=== PATIENT | male | born 1990 | race Hispanic/Latino ===

== ENCOUNTER 2016-10-05 16:16 | Emergency (ER) | payer SELFPAY ==
[2016-10-05 20:11] LABS: Basophils % (Auto) 0.5 % (0.0-1.8); Eosinophils % (Auto) 2.6 % (0.0-4.3); Hematocrit 41.3 % (35.5-45.6); Hemoglobin 13.9 gm/dl (11.8-15.2); Mean Corpuscular HGB Conc 34 % (32-34); Mean Corpuscular Hemoglobin 28 pg (28-32); Mean Corpuscular Volume 84 fl (84-94); Platelet Count 230 K/mm3 (140-440); Red Blood Count 4.93 M/mm3 (3.65-5.03); White Blood Count 9.1 K/mm3 (4.5-11.0)
[2016-10-05 20:18] LABS: Anion Gap 17 mmol/L; Blood Urea Nitrogen 6 mg/dL (9-20); Calcium 8.7 mg/dL (8.4-10.2); Carbon Dioxide 29 mmol/L (22-30); Chloride 95.1 mmol/L (98-107); Glucose 79 mg/dL (75-100); Potassium 3.9 mmol/L (3.6-5.0); Sodium 137 mmol/L (137-145)
[2016-10-05 21:25] LABS: Urine Drugs of Abuse Note Disclamer
[2016-10-05 21:42] LABS: Bilirubin,Urine NEG (Negative); Blood,Urine NEG (Negative); Ketones,Urine NEG (Negative); Leukocyte Esterase,Urine NEG (Negative); Mucus,Urine FEW /HPF; Nitrite,Urine NEG (Negative); Protein,Urine <15 mg/dL mg/dL (Negative); Urobilinogen,Urine < 2.0 mg/dL (<2.0); WBC,Urine < 1.0 /HPF (0.0-6.0)
--- NOTE | 2016-10-06 00:21 | Emergency Department Report ---
ED Psych HPI - General Chief Complaint: Psych Stated Complaint: MH/DETOX Time Seen by Provider: 10/06/16 00:03 Source: patient Mode of arrival: Ambulatory Limitations: No Limitations - History of Present Illness Initial Comments: 26-year-old male presents to the emergency department for mental health evaluation. Patient states he was to go to a facility for detox and rehabilitation. He states he has been using heroin. Patient denies suicidal or homicidal thoughts. He denies visual or auditory hallucinations. There are no other complaints. -: unknown Associated Psychiatric Symptoms: none History of same: Yes Quality: constant Improves With: none Worsens With: none Context: recent drug abuse Associated Symptoms: denies other symptoms Treatments Prior to Arrival: none - Related Data Home Medications Medication Instructions Recorded Confirmed Last Taken No Known Home Medications [No 10/06/16 10/06/16 Unknown Reported Home Medications] Allergies Allergy/AdvReac Type Severity Reaction Status Date / Time No Known Allergies Allergy Unverified 10/05/16 19:20 ED Review of Systems ROS: Stated complaint: MH/DETOX Other details as noted in HPI Comment: All other systems reviewed and negative Psychiatric: as per HPI (substance abuse) ED Past Medical Hx - Past Medical History Previous Medical History?: No - Surgical History Past Surgical History?: Yes Additional Surgical History: both shoulders rebuilt - Family History Family history: no significant - Social History Smoking Status: Current Every Day Smoker Substance Use Type: Heroin, Marijuana - Medications Home Medications: Home Medications Medication Instructions Recorded Confirmed Last Taken Type No Known Home Medications [No 10/06/16 10/06/16 Unknown History Reported Home Medications] ED Physical Exam - General Limitations: No Limitations General appearance: alert, in no apparent distress - Head Head exam: Present: atraumatic, normocephalic - Eye Eye exam: Present: normal appearance, PERRL, EOMI - ENT ENT exam: Present: normal exam, normal orophraynx, mucous membranes moist - Neck Neck exam: Present: normal inspection, full ROM. Absent: tenderness - Respiratory Respiratory exam: Present: normal lung sounds bilaterally. Absent: respiratory distress - Cardiovascular Cardiovascular Exam: Present: regular rate, normal rhythm, normal heart sounds - GI/Abdominal GI/Abdominal exam: Present: soft, normal bowel sounds. Absent: distended, tenderness - Extremities Exam Extremities exam: Present: normal inspection, full ROM. Absent: tenderness - Back Exam Back exam: Present: normal inspection, full ROM. Absent: tenderness - Neurological Exam Neurological exam: Present: alert, oriented X3. Absent: motor sensory deficit - Skin Skin exam: Present: warm, dry, intact ED Course Vital Signs 10/05/16 19:14 Temperature 98.4 F Pulse Rate 95 H Respiratory 18 Rate Blood Pressure 128/89 O2 Sat by Pulse 100 Oximetry ED Medical Decision Making - Lab Data Result diagrams: 10/05/16 19:40 10/05/16 19:40 - Medical Decision Making Lab results reviewed. Patient has been medically cleared. Patient is awaiting mental evaluation. - Differential Diagnosis substance abuse Critical care attestation.: If time is entered above; I have spent that time in minutes in the direct care of this critically ill patient, excluding procedure time. ED Disposition Clinical Impression: Substance abuse Disposition: [id number]/TX-65 PSY HOSP/PSY UNIT Is pt being admited?: No Condition: Stable Instructions: Polysubstance Abuse (ED) Referrals: PRIMARY CARE [Primary Care Provider] - 3-5 Days Time of Disposition: 02:19
--- NOTE | 2016-10-06 14:02 | Consultation ---
History of Present Illness - Reason for Consult Consult date: 10/06/16 Reason for consult: Mental Health Evaluation Requesting physician: AUSTIN RAMIRES - Chief Complaint Chief complaint: "I used heroin" - History of Present Psychiatric Illness 26-year-old male presents to the emergency department for mental health evaluation. Today patient is calm and cooperative during assessment. He stated that he is seeking help to detox from opioids (heroin). Patient stated that he last used heroin 24 hours ago. He stated being in a detox program with [facility] , but was dismissed for having contraband (benzos). He denies SI/HI's, AVH's, and depression. He denies excessive alcohol consumption (etoh). Medications and Allergies Allergies Allergy/AdvReac Type Severity Reaction Status Date / Time No Known Allergies Allergy Unverified 10/05/16 19:20 Home Medications Medication Instructions Recorded Confirmed Last Taken Type No Known Home Medications [No 10/06/16 10/06/16 Unknown History Reported Home Medications] Past psychiatric history - Past Medical History Past Medical History: No medical history Past Surgical History: No surgical history - past Psychiatric treatment and history psychiatric treatment history: [facility] for detox for heroin. Patient denies a fam psy/substance abuse hx. - Social History Social history: other (HS and College graduate, homeless) Mental Status Exam - Vital signs Last Vital Signs Temp 98.4 F 10/05/16 19:14 Pulse 85 10/06/16 07:21 Resp 16 10/06/16 07:21 BP 134/85 10/06/16 07:21 Pulse Ox 99 10/06/16 07:21 - Exam Narrative exam: ROS: (-) depression MSE: Appearance: calm, cooperative Behavior: good eye contact Speech: regular rate and tone Mood: "okay" Affect: labile Thought Process: linear Thought Content: denies SI/HI's and AVH's Motor Activity: ambulatory Cognition: A/Ox 3 Insight: fair Judgment: limited Results Result Diagrams: 10/05/16 19:40 10/05/16 19:40 Abnormal lab results 10/05/16 10/05/16 Range/Units 19:40 19:40 RDW 13.0 L (13.2-15.2) % Seg Neutrophils % 77.0 H (40.0-70.0) % Chloride 95.1 L (98-107) mmol/L BUN 6 L (9-20) mg/dL All other labs normal. Assessment and Plan Assessment and plan: Impression: Historical Dx: Opioids use. Substance Use DO (Cocaine/Amphetamines) . Today patient is calm and cooperative during assessment. He denies SI/HI's and AVH's. Patient positive for cocaine/amphetamines. No acute withdrawals noted. DDx: R/O Mood DO Recommendation/Plan: Patient given referrals for rehab services in his local area.
[2016-10-06 15:55] VITALS: BP 99/76
--- NOTE | 2016-10-06 18:27 | Event Note ---
Date: 10/06/16 Patient is seen and examined. He is alert and oriented 3. He walks with a steady gait. He is clinically sober. He is not homicidal or suicidal. Psychiatric recommendations are reviewed. The patient will be discharged at this time. Vital Signs 10/05/16 10/06/16 10/06/16 19:14 07:21 15:54 Temperature 98.4 F Pulse Rate 95 H 85 70 Respiratory 18 16 16 Rate Blood Pressure 128/89 Blood Pressure 134/85 99/76 [Left] O2 Sat by Pulse 100 99 95 Oximetry Labs 10/05/16 10/05/16 10/05/16 19:40 19:40 19:40 WBC 9.1 RBC 4.93 Hgb 13.9 Hct 41.3 MCV 84 MCH 28 MCHC 34 RDW 13.0 L Plt Count 230 Lymph % (Auto) 14.0 [place] % (Auto) 5.9 Eos % (Auto) 2.6 Baso % (Auto) 0.5 Lymph # 1.3 [place] # 0.5 Eos # 0.2 Baso # 0.0 Seg Neutrophils % 77.0 H Seg Neutrophils # 7.0 Sodium 137 Potassium 3.9 Chloride 95.1 L Carbon Dioxide 29 Anion Gap 17 BUN 6 L Creatinine 0.8 Estimated GFR > 60 BUN/Creatinine Ratio 7.50 Glucose 79 Calcium 8.7 Urine Color Urine Turbidity Urine pH Ur Specific [place] Urine Protein Urine Glucose (UA) Urine Ketones Urine Blood Urine Nitrite Urine Bilirubin Urine Urobilinogen Ur Leukocyte Esterase Urine WBC (Auto) Urine RBC (Auto) Urine Mucus Urine Opiates Screen Urine Methadone Screen Ur Barbiturates Screen Ur Phencyclidine Scrn Ur Amphetamines Screen U Benzodiazepines Scrn Urine Cocaine Screen U Marijuana (THC) Screen Drugs of Abuse Note Plasma/Serum Alcohol < 0.01 10/05/16 10/05/16 21:00 21:00 WBC RBC Hgb Hct MCV MCH MCHC RDW Plt Count Lymph % (Auto) [place] % (Auto) Eos % (Auto) Baso % (Auto) Lymph # [place] # Eos # Baso # Seg Neutrophils % Seg Neutrophils # Sodium Potassium Chloride Carbon Dioxide Anion Gap BUN Creatinine Estimated GFR BUN/Creatinine Ratio Glucose Calcium Urine Color Yellow Urine Turbidity Clear Urine pH 6.0 Ur Specific [place] 1.006 Urine Protein <15 mg/dl Urine Glucose (UA) Neg Urine Ketones Neg Urine Blood Neg Urine Nitrite Neg Urine Bilirubin Neg Urine Urobilinogen < 2.0 Ur Leukocyte Esterase Neg Urine WBC (Auto) < 1.0 Urine RBC (Auto) 3.0 Urine Mucus Few Urine Opiates Screen Presumptive negative Urine Methadone Screen Presumptive negative Ur Barbiturates Screen Presumptive negative Ur Phencyclidine Scrn Presumptive negative Ur Amphetamines Screen Presumptive positive U Benzodiazepines Scrn Presumptive negative Urine Cocaine Screen Presumptive positive U Marijuana (THC) Screen Presumptive negative Drugs of Abuse Note Disclamer Plasma/Serum Alcohol
== END 2016-10-06 19:38 | disposition home or self-care (01) ==
LOC: EEVIPCON 16:16 → ED 16:16
DX: F12.10 Cannabis abuse, uncomplicated (principal); F11.10 Opioid abuse, uncomplicated; F17.210 Nicotine dependence, cigarettes, uncomplicated
CPT/HCPCS: 36415; 80048; 80307; 81001; 85025; 99283; G0480; 80320